=== PATIENT | female | born 1985 | race American Indian/Alaskan Native ===

== ENCOUNTER 2019-03-01 18:21 | Emergency (ER) | payer SELFPAY ==
[2019-03-01 18:32] VITALS: BP 153/83
--- NOTE | 2019-03-01 21:30 | Emergency Department Report ---
ED General Adult HPI - General Chief complaint: Rectal Pain Stated complaint: RECTUM PAIN Time Seen by Provider: 03/01/19 20:10 Source: patient Mode of arrival: Ambulatory Limitations: No Limitations - History of Present Illness Initial comments: Patient is a 33-year-old female who presents to the emergency room with complaints of a possible hemorrhoid that began 2 days ago. She states she has been straining to have a bowel movement and has been worried to have a bowel movement due to discomfort. she states she noticed a small amount of bright red blood when she wiped today. She states she has a past medical history of hemorrhoids. She does not report any abdominal pain, nausea, vomiting, diarrhea, fever. She did not try any tx to alleviate her symptoms. - Related Data Previous Rx's Medication Instructions Recorded Last Taken Type Docusate Sodium [Colace] 100 mg PO BID PRN #20 capsule 03/01/19 Unknown Rx Hydrocortisone [Anucort-HC SUPPOS] 25 mg RC BID #20 supp.rect 03/01/19 Unknown Rx Polyethylene Glycol 3350 [Miralax] 7 gm PO DAILY #1 powder 03/01/19 Unknown Rx Allergies Allergy/AdvReac Type Severity Reaction Status Date / Time No Known Allergies Allergy Verified 03/01/19 18:32 ED Review of Systems ROS: Stated complaint: RECTUM PAIN Other details as noted in HPI Comment: All other systems reviewed and negative ED Past Medical Hx - Social History Smoking Status: Current Every Day Smoker Substance Use Type: None - Medications Home Medications: Home Medications Medication Instructions Recorded Confirmed Last Taken Type Docusate Sodium [Colace] 100 mg PO BID PRN #20 capsule 03/01/19 Unknown Rx Hydrocortisone [Anucort-HC SUPPOS] 25 mg RC BID #20 supp.rect 03/01/19 Unknown Rx Polyethylene Glycol 3350 [Miralax] 7 gm PO DAILY #1 powder 03/01/19 Unknown Rx ED Physical Exam - General Limitations: No Limitations General appearance: alert, in no apparent distress - Head Head exam: Present: atraumatic, normocephalic - Eye Eye exam: Present: normal appearance - ENT ENT exam: Present: mucous membranes moist - GI/Abdominal GI/Abdominal exam: Present: soft, normal bowel sounds. Absent: distended, tenderness, guarding, rebound, rigid - Rectal Rectal exam: Present: normal inspection, normal rectal tone, heme (-) stool, hemorrhoids (internal hemorrhoids present ), other (brown stool, no gross blood, cutter banana room: [employer] moreno). Absent: black stool, bloody stool, tenderness - Neurological Exam Neurological exam: Present: alert, oriented X3 - Psychiatric Psychiatric exam: Present: normal affect, normal mood - Skin Skin exam: Present: warm, dry, intact ED Course Vital Signs 03/01/19 18:30 Temperature 98.4 F Pulse Rate 93 H Respiratory 16 Rate Blood Pressure 153/83 O2 Sat by Pulse 100 Oximetry ED Medical Decision Making - Medical Decision Making Patient is a 33-year-old female who presents to the emergency room with complaints of a possible hemorrhoid that began 2 days ago. She states she has been straining to have a bowel movement and has been worried to have a bowel movement due to discomfort. she states she noticed a small amount of bright red blood when she wiped today. She states she has a past medical history of hemorrhoids. She does not report any abdominal pain, nausea, vomiting, diarrhea, fever. She did not try any tx to alleviate her symptoms. VSS. internal hemorrhoids present on exam. hemoccult negative for blood. pt given prescription for anucort, miralax, and colace. advised to please use medication as prescribed. please drink plenty of water and eat a high fiber diet. follow up with a primary care doctor in the next 2-3 days. return to the emergency room for any new or worsening symptoms Critical care attestation.: If time is entered above; I have spent that time in minutes in the direct care of this critically ill patient, excluding procedure time. ED Disposition Clinical Impression: Internal hemorrhoid Disposition: - TO HOME OR SELFCARE Is pt being admited?: No Does the pt Need Aspirin: No Condition: Stable Instructions: Hemorrhoids (ED), High Fiber Diet (ED), Sitz Bath (GEN) Additional Instructions: please use medication as prescribed. please drink plenty of water and eat a high fiber diet. follow up with a primary care doctor in the next 2-3 days. return to the emergency room for any new or worsening symptoms Prescriptions: Hydrocortisone [Anucort-HC SUPPOS] 25 mg RC BID #20 supp.rect Docusate Sodium [Colace] 100 mg PO BID PRN #20 capsule PRN Reason: Constipation Polyethylene Glycol 3350 [Miralax] 7 gm PO DAILY #1 powder Referrals: OLGA STEPHENS MD [Primary Care Provider] - 2-3 Days Time of Disposition: 21:57 Print Language: SLOVAK
== END 2019-03-01 22:34 | disposition home or self-care (01) ==
LOC: ED 18:21
DX: K64.8 Other hemorrhoids (principal); F17.200 Nicotine dependence, unspecified, uncomplicated; Z79.899 Other long term (current) drug therapy
CPT/HCPCS: 82271